=== PATIENT | female | born 1985 | race African-American/Black ===

== ENCOUNTER 2016-11-09 18:49 | Emergency (ER) | payer SELFPAY ==
[~2016-11-09] VITALS: Ht 170.2 cm; Wt 66.7 kg
[~2016-11-09 18:49] MED LIST: ALEVE220 MG PO; AUGMENTIN875 MG PO; BACTRIM,SEPT1 TABLET PO; BUTALB-APAP-CA1 EACH PO; FLEXERIL10 MG PO; MOTRIN600 MG PO; NOHOMEMEDS; NORCO 5/3251 TABLET PO; PERCOCET 5/31 TABLET PO; TESSALON PERLE100 MG PO; THERAFLU COL245.5 ML PO; ULTRAM50 MG PO; VICODIN,LORT1 TABLET PO; ZITHROMAX500 MG PO; ZOFRAN ODT4 MG PO; no home med
[2016-11-09 19:19] LABS: CHLORIDE 106 mEq/L (99-109); HEMATOCRIT 35.5 % (36.0-46.0); MCH 20.4 PG (29.0-34.0); MCHC 28.5 G/DL (30.0-36.0); MCV 71.7 FL (83-99); MEAN PLAT.VOLUME 10.5 uM^3 (9.5-12.4); PLATELET COUNT 223 K/uL (156-360); POTASSIUM 3.7 mEq/L (3.7-5.4); RBC DIS.WIDTH-CV 20.3 % (11.8-14.6); RBC DIS.WIDTH-SD 51.6 % (39-53); RED BLOOD COUNT 4.95 M/uL (3.80-5.20); SODIUM 139 mEq/L (136-147); WHITE BLOOD COUNT 5.6 K/uL (4.1-10.2)
[2016-11-09 19:21] LABS: GLUCOSE 89 mg/dL (70-99)
[2016-11-09 19:22] LABS: ANION GAP 9 MEQ/L (2-14)
[2016-11-09 19:23] LABS: TOTAL BILIRUBIN 0.3 mg/dL (0.0-1.0)
[2016-11-09 19:24] LABS: ALKALINE PHOSPHATASE 78 IU/L (3-129)
[2016-11-09 19:25] LABS: GFR ESTIMATE (CALCULATED) > 59 mL/min/
[2016-11-09 19:26] LABS: UREA NITROGEN (BUN) 8 mg/dL (9-23)
[2016-11-09 19:39] LABS: QUANTITATIVE HCG < 4.0 MIU/ML
[2016-11-09 19:50] LABS: ADD MIUA? NO; BILIRUBIN NEGATIVE; BLOOD NEGATIVE; COLOR YELLOW ((YELLOW)); GLUCOSE (STRIP) NEGATIVE; KETONES NEGATIVE; LEUKOCYTES NEGATIVE; NITRITE NEGATIVE; PROTEIN (STRIP) NEGATIVE; UCUL ADDED? NO; UROBILINOGEN 0.2 MG/DL (0.2-1.0)
[2016-11-09 19:50] LABS: LIPASE 12 U/L (1.0-51.0)
[2016-11-09 20:22] LABS: TROP-I INTERPRETATION NEGATIVE; TROPONIN-I < 0.01 ng/mL (0.0-0.30)
[2016-11-09] MEDS ORDERED: ATARAX,VISTARIL25 MG PO (20:55)
[2016-11-09] MEDS ORDERED: ZOFRAN ODT4 MG PO (20:55)
[2016-11-09 21:15] VITALS: BP 104/61
== END 2016-11-09 21:16 | disposition home or self-care (01) ==
LOC: EME 18:49
PROVIDERS: Nurse Practitioner Family
DX: R00.2 Palpitations (principal); F41.9 Anxiety disorder, unspecified; R11.2 Nausea with vomiting, unspecified; D64.9 Anemia, unspecified; R42 Dizziness and giddiness
CPT/HCPCS: 80053; 81003; 83690; 84443; 84484; 84702; 85027; 93005; 99281; 99284; Q0177

== ENCOUNTER 2016-12-04 23:01 | Emergency (ER) | payer OTHER ==
[~2016-12-04] VITALS: Ht 167.6 cm; Wt 65.4 kg
[~2016-12-04 23:01] MED LIST changes: +ATARAX,VISTARIL25 MG PO
[2016-12-05] MEDS ORDERED: REGLAN10 MG PO (03:01)
[2016-12-05] MEDS ORDERED: NORCO 5/3251 TABLET PO (03:01)
[2016-12-05 03:06] VITALS: BP 110/67
== END 2016-12-05 03:07 | disposition home or self-care (01) ==
LOC: EME 23:01
DX: S09.90XA Unspecified injury of head, initial encounter (principal); M54.2 Cervicalgia; R11.2 Nausea with vomiting, unspecified; W22.8XXA Striking against or struck by other objects, initial encounter; F41.9 Anxiety disorder, unspecified
CPT/HCPCS: 70450; 72125; 99281; 99284

== ENCOUNTER 2017-01-29 22:29 | Emergency (ER) | payer OTHER ==
[~2017-01-29] VITALS: Ht 170.2 cm; Wt 63.0 kg
[~2017-01-29 22:29] MED LIST changes: +REGLAN10 MG PO
[2017-01-29 23:39] LABS: HEMATOCRIT 37.1 % (36.0-46.0); MCH 24.9 PG (29.0-34.0); MCHC 31.3 G/DL (30.0-36.0); MCV 79.8 FL (83-99); MEAN PLAT.VOLUME 10.2 uM^3 (9.5-12.4); PLATELET COUNT 134 K/uL (156-360); RBC DIS.WIDTH-CV 20.4 % (11.8-14.6); RBC DIS.WIDTH-SD 59.6 % (39-53); RED BLOOD COUNT 4.65 M/uL (3.80-5.20); WHITE BLOOD COUNT 3.2 K/uL (4.1-10.2)
[2017-01-29 23:48] LABS: CHLORIDE 105 mEq/L (99-109); POTASSIUM 3.9 mEq/L (3.7-5.4); SODIUM 139 mEq/L (136-147)
[2017-01-29 23:50] LABS: GLUCOSE 95 mg/dL (70-99)
[2017-01-29 23:51] LABS: ANION GAP 9 MEQ/L (2-14)
[2017-01-29 23:52] LABS: TOTAL BILIRUBIN 0.3 mg/dL (0.0-1.0)
[2017-01-29 23:53] LABS: SERUM ETHYL ALCOHOL < 10 mg/dL
[2017-01-29 23:54] LABS: ALKALINE PHOSPHATASE 60 IU/L (3-129); GFR ESTIMATE (CALCULATED) > 59 mL/min/
[2017-01-29 23:55] LABS: UREA NITROGEN (BUN) 7 mg/dL (9-23)
[2017-01-30 00:04] LABS: QUANTITATIVE HCG < 4.0 MIU/ML
[2017-01-30 01:58] VITALS: BP 127/69
== END 2017-01-30 01:59 | disposition home or self-care (01) ==
LOC: EME 22:29
PROVIDERS: Emergency Medicine
DX: F32.9 Major depressive disorder, single episode, unspecified (principal); F43.21 Adjustment disorder with depressed mood
CPT/HCPCS: 80053; 81003; 84702; 85027; 90839; 99281; 99285; G0480

== ENCOUNTER 2017-09-14 02:19 | Inpatient (IN) | payer OTHER ==
[~2017-09-14] VITALS: Ht 167.6 cm; Wt 59.7 kg
[2017-09-14 02:59] LABS: HEMATOCRIT 39.2 % (36.0-46.0); HEMOGLOBIN 13.2 G/DL (11.9-15.5); MCH 31.4 PG (29.0-34.0); MCHC 33.7 G/DL (30.0-36.0); MCV 93.1 FL (83-99); PLATELET COUNT 120 K/uL (156-360); RBC DIS.WIDTH-CV 13.7 % (11.8-14.6); RED BLOOD COUNT 4.21 M/uL (3.80-5.20); WHITE BLOOD COUNT 5.8 K/uL (4.1-10.2)
[2017-09-14 03:17] LABS: ALBUMIN 4.4 g/dL (3.2-4.8); CHLORIDE 106 mEq/L (99-109); POTASSIUM 3.8 mEq/L (3.7-5.4); SODIUM 140 mEq/L (136-147)
[2017-09-14 03:19] LABS: GLUCOSE 93 mg/dL (70-99); TOTAL PROTEIN 7.4 g/dL (6.4-8.3)
[2017-09-14 03:21] LABS: TOTAL BILIRUBIN 0.4 mg/dL (0.0-1.0)
[2017-09-14 03:23] LABS: ALKALINE PHOSPHATASE 68 IU/L (3-129); GFR ESTIMATE (CALCULATED) > 59 mL/min/
[2017-09-14 03:24] LABS: UREA NITROGEN (BUN) 9 mg/dL (9-23)
[2017-09-14 03:25] LABS: AST (GOT) 22 IU/L (2-34)
[2017-09-14 03:26] LABS: ALT (GPT) 22 IU/L (3-49); LIPASE 11 U/L (1.0-51.0)
[2017-09-14 03:32] LABS: QUANTITATIVE HCG < 4.0 MIU/ML
[2017-09-14 06:08] LABS: APPEARANCE SL.HAZY ((CLEAR)); BILIRUBIN NEGATIVE; BLOOD NEGATIVE; COLOR YELLOW ((YELLOW)); GLUCOSE (STRIP) NEGATIVE; KETONES NEGATIVE; LEUKOCYTES MODERATE; NITRITE NEGATIVE; PROTEIN (STRIP) NEGATIVE; UROBILINOGEN 0.2 MG/DL (0.2-1.0)
[2017-09-14 06:18] LABS: SPECIFIC GRAVITY > 1.060 (1.000-1.030)
[2017-09-14 06:19] LABS: BACTERIA RARE /HPF; EPITHELIAL CELLS 4+ /HPF; MUCUS TRACE /LPF; UCUL ADDED? YES
[2017-09-14 07:11] LABS: AMPHETAMINE NEGATIVE (500 ng/mL); BARBITURATES NEGATIVE (200 ng/mL); BENZODIAZEPINES NEGATIVE (150 ng/mL); BUPRENORPHINE NEGATIVE (10 ng/mL); COCAINE NEGATIVE (150 ng/mL); METHADONE NEGATIVE (200 ng/mL); METHAMPHETAMINE NEGATIVE (500 ng/mL); OPIATES (MORPHINE) NEGATIVE (100 ng/mL); OXYCODONE NEGATIVE (100 ng/mL); PHENCYCLIDINE NEGATIVE (25 ng/mL); PROPOXYPHENE NEGATIVE (300 ng/mL); THC CANNABINOIDS PRESUMPTIVE POSITIVE (50 ng/mL); TRICYCLIC ANTIDEPRESSANTS NEGATIVE (300 ng/mL)
[2017-09-14] MEDS ORDERED: LEXAPRO20 MG PO (07:14)
[2017-09-14] MEDS ORDERED: RANITIDINE HCL150 MG PO (07:14)
[2017-09-14] MEDS ORDERED: BENTYL20 MG PO (07:15)
[2017-09-14] MEDS ORDERED: MOTRIN600 MG PO (07:15)
[2017-09-14] MEDS ORDERED: BUSPAR10 MG PO (07:16)
[2017-09-14] MEDS ORDERED: OMEPRAZOLE20 M2 PO (07:16)
[2017-09-14 08:11] VITALS: BP 87/51
[2017-09-14 09:19] VITALS: BP 106/58
[2017-09-14 15:45] VITALS: BP 96/53
[2017-09-14 20:03] VITALS: BP 104/55
[2017-09-15 00:12] VITALS: BP 113/62
[2017-09-15 03:49] VITALS: BP 96/58
[2017-09-15 07:08] LABS: CHLORIDE 110 MEQ/L (99-109); CREATININE 0.9 MG/DL (0.6-1.3); GFR ESTIMATE (CALCULATED) > 59 mL/min/; GLUCOSE 114 mg/dL (70-99); POTASSIUM 4.3 MEQ/L (3.7-5.4); SODIUM 143 MEQ/L (136-147); UREA NITROGEN (BUN) 7 mg/dL (9-23)
[2017-09-15 07:13] LABS: HEMATOCRIT 32.9 % (36.0-46.0); MCH 30.4 PG (29.0-34.0); MCHC 32.5 G/DL (30.0-36.0); MCV 93.5 FL (83-99); PLATELET COUNT 100 K/uL (156-360); RBC DIS.WIDTH-SD 48.2 % (39-53); RED BLOOD COUNT 3.52 M/uL (3.80-5.20); WHITE BLOOD COUNT 7.9 K/uL (4.1-10.2)
[2017-09-15 07:14] LABS: HEMOGLOBIN 10.7 G/DL (11.9-15.5)
[2017-09-15 07:42] VITALS: BP 95/58
[2017-09-15 11:19] VITALS: BP 106/67
[2017-09-15 15:47] VITALS: BP 118/67
[2017-09-15 23:00] VITALS: BP 104/60
[2017-09-16 05:55] LABS: HEMATOCRIT 31.6 % (36.0-46.0); HEMOGLOBIN 10.2 G/DL (11.9-15.5); MCH 30.4 PG (29.0-34.0); MCHC 32.3 G/DL (30.0-36.0); MCV 94.3 FL (83-99); PLATELET COUNT 90 K/uL (156-360); RBC DIS.WIDTH-CV 13.9 % (11.8-14.6); RBC DIS.WIDTH-SD 48.6 % (39-53); RED BLOOD COUNT 3.35 M/uL (3.80-5.20); WHITE BLOOD COUNT 4.9 K/uL (4.1-10.2)
[2017-09-16 06:18] LABS: CHLORIDE 108 MEQ/L (99-109); CREATININE 0.9 MG/DL (0.6-1.3); GFR ESTIMATE (CALCULATED) > 59 mL/min/; GLUCOSE 89 mg/dL (70-99); SODIUM 142 MEQ/L (136-147); UREA NITROGEN (BUN) 6 mg/dL (9-23)
[2017-09-16 08:20] VITALS: BP 97/61
[2017-09-16 11:35] VITALS: BP 106/60
[2017-09-16 15:58] VITALS: BP 110/69
[2017-09-16 20:27] VITALS: BP 117/72
[2017-09-17 00:07] VITALS: BP 130/72
[2017-09-17 06:18] LABS: HEMATOCRIT 32.6 % (36.0-46.0); HEMOGLOBIN 10.6 G/DL (11.9-15.5); MCH 30.8 PG (29.0-34.0); MCHC 32.5 G/DL (30.0-36.0); MCV 94.8 FL (83-99); PLATELET COUNT 102 K/uL (156-360); RBC DIS.WIDTH-CV 13.8 % (11.8-14.6); RBC DIS.WIDTH-SD 48.2 % (39-53); RED BLOOD COUNT 3.44 M/uL (3.80-5.20); WHITE BLOOD COUNT 4.2 K/uL (4.1-10.2)
[2017-09-17 06:36] LABS: CHLORIDE 106 MEQ/L (99-109); CREATININE 0.8 MG/DL (0.6-1.3); GFR ESTIMATE (CALCULATED) > 59 mL/min/; GLUCOSE 85 mg/dL (70-99); SODIUM 140 MEQ/L (136-147); UREA NITROGEN (BUN) 6 mg/dL (9-23)
[2017-09-17 08:24] VITALS: BP 109/53
[2017-09-17] MEDS ORDERED: ROXICODONE5 MG PO (09:50)
[2017-09-17] MEDS ORDERED: SENNA-DOCUSATE1 EAC1 PO (09:50)
== END 2017-09-17 12:15 | disposition home or self-care (01) | DRG 331 ==
LOC: EME 02:19 → 2EAST 06:21 → EDOF 06:21 → ENRESERV 06:23 → 2EAST 07:59
PROVIDERS: Surgery
DX: K56.51 Intestinal adhesions [bands], with partial obstruction (principal); E86.0 Dehydration; G89.29 Other chronic pain; R10.9 Unspecified abdominal pain; K21.9 Gastro-esophageal reflux disease without esophagitis; F32.9 Major depressive disorder, single episode, unspecified; F41.9 Anxiety disorder, unspecified; F12.90 Cannabis use, unspecified, uncomplicated
CPT/HCPCS: 74177; 80048; 80053; 81003; 83690; 84702; 84999; 85027; 87086; 88304; 88307; 99281; 99285; J0131; J0330; J1170; J1885; J2270; J2405; J2710; J2765; J3010; J7030; J7120; J7643; S0074